=== PATIENT | male | born 1980 | race Caucasian/White ===

== ENCOUNTER 2017-11-04 17:23 | Emergency (ER) | payer OTHER ==
[~2017-11-04] VITALS: Ht 182.9 cm; Wt 74.6 kg
[~2017-11-04 17:23] MED LIST: CIPRO500 MG PO; EFFEXOR75 MG PO; FLOMAX0.4 MG PO; IBUPROFEN800 MG PO; MOTRIN600 MG PO; MUCINEX DM ER1 EACH PO; PERCOCET 5/31 TABLET PO; ULTRAM50 MG PO; VENLAFAXINE HCL50 MG PO
[2017-11-04 19:24] LABS: HEMATOCRIT 45.8 % (38.0-50.0); HEMOGLOBIN 15.4 G/DL (12.5-16.6); MCH 32.2 PG (29.0-34.0); MCHC 33.6 G/DL (30.0-36.0); MCV 95.6 FL (86-99); PLATELET COUNT 424 K/uL (156-360); RBC DIS.WIDTH-CV 15.1 % (11.8-14.6); RBC DIS.WIDTH-SD 52.7 % (39-53); RED BLOOD COUNT 4.79 M/uL (4.00-5.50); WHITE BLOOD COUNT 10.2 K/uL (4.1-10.2)
[2017-11-04 19:51] LABS: ALBUMIN 4.7 g/dL (3.2-4.8); CHLORIDE 110 mEq/L (99-109); POTASSIUM 4.1 mEq/L (3.7-5.4); SODIUM 136 mEq/L (136-147)
[2017-11-04 19:53] LABS: GLUCOSE 306 mg/dL (70-99); TOTAL PROTEIN 7.9 g/dL (6.4-8.3)
[2017-11-04 19:55] LABS: TOTAL BILIRUBIN 0.2 mg/dL (0.0-1.0)
[2017-11-04 19:57] LABS: CREATININE 1.2 mg/dL (0.6-1.3); GFR ESTIMATE (CALCULATED) > 59 mL/min/ (58.99-99999)
[2017-11-04 19:58] LABS: ALKALINE PHOSPHATASE 105 IU/L (3-129)
[2017-11-04 19:59] LABS: AST (GOT) 33 IU/L (2-34); UREA NITROGEN (BUN) 18 mg/dL (9-23)
[2017-11-04 20:00] LABS: SALICYLATE < 5.0 MG/DL (15-30)
[2017-11-04 20:01] LABS: ACETAMINOPHEN (TYLENOL) < 10 mcg/mL (10-30); ALT (GPT) 23 IU/L (3-49); CREATINE KINASE 143 IU/L (1-294)
[2017-11-04 20:56] LABS: AMPHETAMINE NEGATIVE (500 ng/mL); BARBITURATES NEGATIVE (200 ng/mL); BENZODIAZEPINES NEGATIVE (150 ng/mL); BUPRENORPHINE NEGATIVE (10 ng/mL); COCAINE NEGATIVE (150 ng/mL); METHADONE NEGATIVE (200 ng/mL); METHAMPHETAMINE NEGATIVE (500 ng/mL); OPIATES (MORPHINE) NEGATIVE (100 ng/mL); OXYCODONE NEGATIVE (100 ng/mL); PHENCYCLIDINE NEGATIVE (25 ng/mL); PROPOXYPHENE NEGATIVE (300 ng/mL); THC CANNABINOIDS NEGATIVE (50 ng/mL); TRICYCLIC ANTIDEPRESSANTS NEGATIVE (300 ng/mL)
[2017-11-04 23:58] VITALS: BP 132/78
== END 2017-11-04 23:58 | disposition home or self-care (01) ==
LOC: EME 17:23
PROVIDERS: Emergency Medicine
DX: F11.10 Opioid abuse, uncomplicated (principal); R73.9 Hyperglycemia, unspecified
CPT/HCPCS: 80053; 82550; 85027; 85610; 85730; 93005; 99281; 99284; G0480; J7030